=== PATIENT | male | born 1990 | race Caucasian/White ===

== ENCOUNTER 2016-10-27 05:00 | Inpatient (IN) | payer OTHER ==
--- NOTE | ~2016-10-27 | PA ---
Unit #: [id number] #: [id number] Patient: LIZA DUMONT [id number] [facility] [address] [place] [address] [id number] I MR#: [id number] NAME: LIZA DUMONT ROOM: P212 Age: 26 Sex: M Admission Date: 10/27/2016 : 1990 Date of Assessment: 10/27/2016 Attending Physician: Tejinder Grijalva M.D. Admitting Physician: Tejinder Grijalva M.D. Primary Care Physician: Primary Care Physician No PSYCHIATRIC ASSESSMENT IDENTIFYING INFORMATION The patient is a 26-year-old white male admitted after he had suffered a "panic attack." He has a history of abuse of methamphetamine and heroin. INFORMANT(S) Patient. RELIABILITY Fair. CHIEF COMPLAINT Had a panic attack. HISTORY OF PRESENT ILLNESS The patient is a 26-year-old white male admitted after he had presented to [facility] voicing positive suicidal ideation. The patient reports that he was planning to "jump in the river." The patient reports that he suffered a panic attack prior to this episode. The patient continues to complain of severely depressed mood. The patient was previously admitted to [facility] in [facility] under similar circumstances. His drug screen is today positive only for cannabis. He reports that he last used methamphetamine approximately 2 weeks ago. The patient was while admitted to [facility] prescribed Prozac and low dose BuSpar. When seen today, the patient is continuing to complain of dysphoric mood and suicidal ideation. He complains of severe anxiety and is also reporting significant somatic symptoms including urinary hesitance and some nausea as well as nasal congestion. The patient lives with his daughter in [facility]. He reports substance use as noted previously. PAST PSYCHIATRIC HISTORY As above. FAMILY HISTORY Noncontributory. SOCIAL HISTORY The patient lives with his daughter. He reports substance use as noted previously. He is not presently employed. He last worked in the [employer]. He is a smoker. MEDICAL HISTORY The patient reports a history of colitis. Unit #: [id number] #: [id number] Patient: LIZA DUMONT MEDICATION HISTORY 1. Prozac. 2. BuSpar. ALLERGIES Ceclor. MENTAL STATUS EXAM At this time, reveals the patient to be a well-developed, well-nourished white male appearing stated age. He appears to be in moderate physical distress at the time of the examination. He is awake, alert, oriented in all spheres. His mood is dysphoric. His affect constricted. Speech is generally relevant and coherent. There are no gross deficits in memory or cognition noted. Intelligence is judged to be in the average range based on fund of knowledge. The patient is cooperative throughout the interview. He continues to endorse positive suicidal ideation during today's interview. He denies homicidal ideation. He denies any psychotic symptoms. His judgement and insight appear to be reasonably intact. ASSETS AND LIABILITIES Patient's assets to be assessed. Liabilities, lack of resources. ADMITTING DIAGNOSES 1. Mood disorder, unspecified. 2. Methamphetamine use disorder. 3. Opioid use disorder. 4. Colitis by history. PSYCHIATRIC PLAN/TREATMENT GOALS The patient remains hospitalized for safety and stabilization. We will continue Prozac with dosage increase to 20 mg daily. BuSpar will also be increased to 10 mg b.i.d. and I will add p.r.n. Vistaril. The patient will participate in appropriate escobar and milieu activities and I will ask for a medical consult regarding his complaints of nausea and urinary hesitance. ESTIMATED LENGTH OF STAY Three to five days. Dictated by... Tejinder Grijalva M.D. CARLOTA/geraldine TD: 10/27/2016 16:12 JOB #: [id number] Unit #: [id number] #: [id number] Patient: LIZA DUMONT PSYCHIATRIC ASSESSMENT Page 1 of 1 X Tejinder Grijalva MD X PSYCHIATRIC ASSESSMENT
--- NOTE | ~2016-10-27 | HP ---
Unit #: [id number] #: [id number] Patient: LIZA DUMONT [id number] [place] [address] [id number] I MR#: [id number] NAME: LIZA DUMONT ROOM: P212 Age: 26 Sex: M Admission Date: 10/27/2016 : 1990 Attending Physician: Tejinder Grijalva M.D. Admitting Physician: Tejinder Grijalva M.D. Primary Care Physician: Primary Care Physician No HISTORY AND PHYSICAL HISTORY OF PRESENT ILLNESS Liza is a 26 year old admitted to [address] [place] [address] with depression and verbalizing wanting to hurt himself. PAST MEDICAL HISTORY Nothing significant. PAST SURGICAL HISTORY Nothing reported. ALLERGIES Ceclor. SOCIAL HISTORY He denies cigarettes and alcohol. Admits to using marijuana on a daily basis and has a history of IV opioids and snorting amphetamines. FAMILY HISTORY Medically noncontributory. REVIEW OF SYSTEMS CONSTITUTIONAL: No fever or chills. HEENT: Denies any sore throat, ear pain or runny nose. CARDIOVASCULAR: Denies chest pain, irregular heart rhythm or palpitations. CHEST: Denies shortness of breath or cough. No hemoptysis. GASTROINTESTINAL: Denies nausea, vomiting, diarrhea or chronic constipation. ENDOCRINE: Denies history of increased thirst or urination. No recent significant weight loss or gain. GENITOURINARY: Denies dysuria, frequency, or hematuria. SKIN: Denies any rashes. HEMATOLOGIC: Denies history of increased bleeding or bruising. MUSCULOSKELETAL: Denies any hot, swollen joints. No generalized muscle pain. NEUROLOGIC: Denies problems with vision or speech. No frequent, severe headaches. No numbness, tingling or weakness in any extremities. Denies loss of bladder or bowel control. CURRENT MEDICATIONS 1. Prozac 40 mg daily. 2. BuSpar 10 mg b.i.d. 3. Vistaril 50 mg q. 6 hours p.r.n. 4. Milk of Magnesia p.r.n. Unit #: [id number] #: [id number] Patient: LIZA DUMONT 5. Maalox p.r.n. 6. Tylenol p.r.n. 7. Nicotine patch 14 mg daily. PHYSICAL EXAMINATION GENERAL: Alert, well-nourished, in no apparent distress. VITAL SIGNS: Blood pressure 126/64, heart rate 66, respirations 16, temperature 98.6. WEIGHT: 180. HEIGHT: 5 feet 9 inches. SKIN: Warm and dry without rash or lesion. HEENT: Normocephalic. TMs not viewed. Oral and nasal passages clear. Conjunctivae clear. PERRLA. EOMs intact. NECK: Supple without lymphadenopathy or thyromegaly. HEART: Regular rate and rhythm without murmur. LUNGS: Clear. ABDOMEN: Soft, nontender. : Not done. EXTREMITIES: No evidence of cyanosis, clubbing or edema. Moves all without focal deficit. NEUROLOGICAL: Grossly within normal limits. Cranial Nerves: II: Visual chang are intact. III, IV AND : Extraocular movements are intact. Pupils are equal, round and reactive to light. V: Facial sensation is grossly normal. VII: Facial movements and expression are normal. VIII: Auditory acuity grossly intact. IX, X: Uvula is midline. Phonation is normal. XI: Patient shrugs shoulders and turns head normally. XII: Tongue protrudes in the midline. Sensory and Motor Function: Sensory and motor sensation is grossly normal. Motor: moves all extremities well. Coordination: Gait is normal. Deep Tendon Reflexes: Intact. IMPRESSION Psychiatric admission. RECOMMENDATIONS PSYCHIATRIC: Per psychiatrist. MEDICAL: See no contraindications to participate in facility's activities. MEDICAL PROGNOSIS Good. MEDICAL CONDITION Stable. Dictated by... Mirna Quach P.A.-C. for Neo James/geraldine TD: 10/27/2016 21:18 JOB #: [id number] Unit #: [id number] #: [id number] Patient: LIZA DUMONT HISTORY AND PHYSICAL Page 1 of 1 X Mirna Quach HISTORY AND PHYSICAL
--- NOTE | ~2016-10-27 | DS ---
Unit #: [id number] #: [id number] Patient: LIZA DUMONT [id number] [facility] [address] [place] [address] [id number] I MR#: [id number] NAME: LIZA DUMONT ROOM: [facility] Age: 26 Sex: M Admission Date: 10/27/2016 : 1990 Discharge Date: 10/28/2016 Attending Physician: Tejinder Grijalva M.D. Primary Care Physician: Primary Care Physician No DISCHARGE SUMMARY REASON FOR ADMISSION The patient is a 26-year-old white male, admitted in transfer from [facility] after he presented there of claiming to be suicidal. HOSPITAL COURSE The patient was admitted to the [address] [place] [address] unit and placed on suicide precautions. He was watched for signs or symptoms of withdrawal, but none were in evidence. The patient was continued on prescribed home medications including Vistaril, BuSpar, and Prozac. Prozac was increased to 40 mg daily and BuSpar increased to 10 mg b.i.d. On 10/28/2016, the patient was denying suicidal ideation and was noted to be jovially interacting with peers and staff. He denied suicidal ideation and as per his request, discharge was ordered. FINAL DIAGNOSES Mood disorder, unspecified; methamphetamine use disorder; opioid use disorder; history of colitis. DISPOSITION ON DISCHARGE The patient is discharged on the following medications: Vistaril 50 mg q.6 hours p.r.n. anxiety, BuSpar 10 mg b.i.d. for anxiety, and Prozac 40 mg daily for depression. DISCHARGE INSTRUCTIONS No dietary or physical restrictions were placed upon the patient at the time of discharge. FOLLOWUP Followup will take place through the auspices of community mental health resources in the [facility]. PROGNOSIS The patient's prognosis is considered fair. Dictated by... Tejinder Grijalva M.D. CARLOTA/frida TD: 10/28/2016 14:54 JOB #: [id number] Unit #: [id number] #: [id number] Patient: LIZA DUMONT DISCHARGE SUMMARY Page 1 of 1 X Tejinder Grijalva MD DISCHARGE SUMMARY
[2016-10-28 09:58] LABS: URINE APPEARANCE CLEAR; URINE BILIRUBIN NEG (NEG); URINE BLOOD NEG (NEG); URINE COLOR YELLOW; URINE GLUCOSE NEG (NEG); URINE KETONE NEG (NEG); URINE LEUKOCYTE ESTERASE NEG (NEG); URINE NITRATE NEG (NEG); URINE PROTEIN NEG (NEG); URINE SPECIFIC GRAVITY 1.006 (1.003-1.035); URINE UROBILINOGEN 0.2 MG/DL (NEG)
== END 2016-10-28 15:10 | disposition home or self-care (01) | DRG 885 ==
LOC: P2S 06:54
PROVIDERS: Specialist
DX: F39 Unspecified mood [affective] disorder (principal); F11.20 Opioid dependence, uncomplicated; F15.20 Other stimulant dependence, uncomplicated; K52.9 Noninfective gastroenteritis and colitis, unspecified; F17.210 Nicotine dependence, cigarettes, uncomplicated; F41.9 Anxiety disorder, unspecified
CPT/HCPCS: 81003; 82947